=== PATIENT | male | born 2000 | race Caucasian/White ===

== ENCOUNTER 2021-01-23 20:02 | Emergency (ER) | payer MEDICAID ==
[~2021-01-23] VITALS: Ht 180.3 cm; Wt 80.9 kg
[2021-01-23] MEDS ORDERED: IBUPROFEN 600 MG TABLET PO ONE (21:30)
[2021-01-23 21:56] VITALS: BP 113/70
== END 2021-01-23 22:01 | disposition home or self-care (01) ==
LOC: EMS 20:04
DX: S62.343A Nondisplaced fracture of base of third metacarpal bone, left hand, initial encounter for closed fracture (principal); S60.411A Abrasion of left index finger, initial encounter; F12.90 Cannabis use, unspecified, uncomplicated; F17.200 Nicotine dependence, unspecified, uncomplicated; W22.8XXA Striking against or struck by other objects, initial encounter; Y93.89 Activity, other specified; Y92.89 Other specified places as the place of occurrence of the external cause; Y99.8 Other external cause status
CPT/HCPCS: 99283